=== PATIENT | female | born 1990 | race Caucasian/White ===

== ENCOUNTER 2018-01-22 13:03 | Emergency (ER) | payer OTHER ==
[2018-01-22 13:09] VITALS: BP 112/71; PULSE 76; TEMP 97.6; BMI 23.0
[2018-01-22] MEDS ORDERED: METOCLOPRAMIDE HCL INJECTION 10 MG/2 ML VIAL IVPUSH ONE (14:24)
[2018-01-22] MEDS ORDERED: SODIUM CHLORIDE 1,000 ML IV ONE (14:24)
[2018-01-22] MEDS ORDERED: MECLIZINE HCL 25 MG TABLET (FP) PO ONE (14:24)
--- NOTE | 2018-01-22 14:30 | PDOC ---
History of Present Illness - General Chief Complaint: Lightheaded Stated Complaint: DIZZY,HEADACHE Time Seen by Provider: 01/22/18 13:39 History Source: Patient Exam Limitations: No Limitations - History of Present Illness Initial Comments: 01/22/18 14:25 27y F no pmhx presents with complaint of feeling a mild headache and feeling woozy. pt states she was fine last week, starting on monday, she started feeling alittle dizzy and lightheaded when she was walking around. pt notse the sypmtoms persisteed throughout the weekend, and she endorses it as a pressure like sensation around ehr temples, as well as feeling lighteahded when she stands, walks and turns her head. no such sensation when she is at rest. pt ntos she feels alittle nauseus when she feels dizzy, dnies sensation of room spining dizziness. pt yoselyn any vomiting, fever/chills, severe headache, neck pain, back pain, eharing problems. no recent uris/illnessess no recent trauma Past History - Past Medical History Allergies/Adverse Reactions: Allergies Allergy/AdvReac Type Severity Reaction Status Date / Time No Known Allergies Allergy Verified 01/22/18 13:05 Home Medications: Ambulatory Orders Meclizine HCl [Antivert -] 25 mg PO TID PRN #15 tablet 01/22/18 Ondansetron [Zofran -] 4 mg PO TID PRN #14 tablet 01/22/18 COPD: No - Suicide/Smoking/Psychosocial Hx Smoking History: Never smoked Have you smoked in the past 12 months: No Information on smoking cessation initiated: No Hx Alcohol Use: No Drug/Substance Use Hx: No Substance Use Type: None Review of Systems - Review of Systems Able to Perform ROS?: Yes Comments:: 01/22/18 14:29 Constitutional - no reported Fever, Chills, HEENT: no reported vision changes, sore throat Respiratory: no reported cough, sob, hemoptysis Cardiac: +light headedness no reported chest pain, palpitations, , leg swelling Abd/GI: no reported abd pain, nausea, vomiting, blood per rectum, melena, diarrhea : no reported dysuria, frequency, discharge Musculskelatal - no reported back pain, joint swelling skin - no reported bruising, erythema, rash neurological: + headache, no reported numbness, focal weakness, tingling, ataxia , hematologic: no reported easy bruising, easy bleeding *Physical Exam - Vital Signs Last Vital Signs Temp Pulse Resp BP Pulse Ox 97.6 F 76 20 112/71 100 01/22/18 13:04 01/22/18 13:04 01/22/18 13:04 01/22/18 13:04 01/22/18 13:04 - Physical Exam Comments: 01/22/18 14:40 GENERAL: The patient is awake, alert, and fully oriented, Nontoxic - in no acute distress. HEAD: Normocephalic, atraumatic. EYES: extraocular movements intact, sclera anicteric, conjunctiva clear. ENT: Normal voice, Moist mucous membranes. NECK: Normal range of motion, supple LUNGS: Breath sounds equal, clear to auscultation bilaterally. No wheezes, no rhonchi, no rales. HEART: Regular rate and rhythm, normal S1 and S2 without murmur, rub or gallop. ABDOMEN: Soft, nontender, normoactive bowel sounds. No guarding, no rebound. . No CVA tenderness EXTREMITIES: Normal range of motion, no edema. No clubbing or cyanosis. No cords, erythema, or tenderness. PSYCH: Normal mood, normal affect. SKIN: Warm, Dry, normal turgor, NEURO: Mental status: The patient is oriented x3. Cranial nerves: Cranial nerves II through XII are intact Motor: The upper extremities are 5 over 5 in all muscle groups. The lower extremities are 5 over 5 in all muscle groups. Negative pronator drift Sensation: Sensation is intact to light touch throughout. romberg negative Cerebellar: Admyhn-[id number]-mjej is normal in both upper extremities. rapid alternating movements are normal. Gait: Normal. ED Treatment Course - LABORATORY CBC & Chemistry Diagram: 01/22/18 15:15 01/22/18 15:15 Medical Decision Making - Medical Decision Making 01/22/18 14:41 suspect vertigo vs tension headache will treat supportively will ck basic labs fluids, zofran, meclizine 01/22/18 16:55 pt feeling improved no longer dizzy, ambulating around the ED feling well headache also substnatially improved normal gait normal finger to nose, rpaid alternatiing movements will dc with pmd fu returnprecautions were discussed I discussed the physical exam findings, ancillary test results and final diagnoses with the patient. I answered all of the patient's questions. The patient was satisfied with the care received and felt comfortable with the discharge plan and treatment plan. The patient will call their primary care physician within 24 hours to arrange follow-up and will return to the Emergency Department with any new, persistent or worsening symptoms. *DC/Admit/Observation/Transfer Diagnosis at time of Disposition: Vertigo - Discharge Dispostion Disposition: HOME Condition at time of disposition: Improved Decision to Admit order: No - Referrals Referrals: [facility] [place] [facility] [place] [Provider Group] - Patient Instructions Printed Discharge Instructions: DI for Vertigo Additional Instructions: Return to the emergency department immediately with ANY new, persistent or worsening symptoms including headache, vomiting, persistent dizziness, double vision, diffuclty with speech or any other concerns. Take meclizine for the dizziness and zofran if you feel nauseus. You MUST call and follow up with your doctor or a neurologist in 3-4 days for further evaluation of your symptoms. Results were discussed with you. Please make sure your doctor reviews the results of your emergency evaluation. Print Language: SURINAMESE - Post Discharge Activity
[2018-01-22] MEDS ORDERED: MECLIZINE HCL 25 MG TABLET (FP) ONE (15:21)
[2018-01-22 15:33] LABS: EOS % 1.7 % (0-4.5); HEMATOCRIT 44.6 % (32.4-45.2); HEMOGLOBIN 15.1 GM/dl (10.7-15.3); LYMPH % 23.5 % (8-40); MCH 30.1 pg (25.7-33.7); MCHC 33.8 g/dl (32.0-36.0); MEAN CELL VOLUME 89.1 fl (80-96); MEAN PLT VOLUME 8.6 fl (7.5-11.1); NEUT % 67.8 % (42.8-82.8); PLATELET COUNT 233 K/MM3 (134-434); RBC 5.01 M/mm3 (3.60-5.2); RDW 11.4 % (11.6-15.6); WHITE BLOOD COUNT 9.3 K/mm3 (4.0-10.8)
[2018-01-22 15:42] LABS: ALBUMIN 4.4 g/dl (3.5-5.0); ALK PHOS 48 U/L (32-92); ANION GAP 7 MMOL/L (8-16); BILIRUBIN,TOTAL 0.7 mg/dl (0.2-1.0); BLOOD UREA NITROGEN 13 mg/dl (7-18); CALCIUM 9.2 mg/dl (8.4-10.2); CHLORIDE 104 mmol/L (98-107); CO2 25 mmol/L (22-28); CREATININE 0.7 mg/dl (0.6-1.3); GLUCOSE,RANDOM 92 mg/dl (74-106); POTASSIUM 3.7 mmol/L (3.5-5.1); SGOT/AST 22 U/L (10-42); SGPT/ALT 27 U/L (10-40); SODIUM 136 mmol/L (136-145); TOT PROT 7.5 g/dl (6.4-8.3)
[2018-01-22 16:37] LABS: PH,URINE 6.5 (4.5-8); URINE APPEARANCE Clear; URINE BILIRUBIN Negative (NEGATIVE); URINE COLOR Yellow; URINE GLUCOSE (UA) Negative (NEGATIVE); URINE KETONE Negative (NEGATIVE); URINE LEUK ESTERASE Negative (NEGATIVE); URINE NITRITE Negative (NEGATIVE); URINE PROTEIN Negative (NEGATIVE); URINE UROBILINOGEN 0.2 (0.2-1.0)
[2018-01-22 16:43] LABS: HCG,QUALITATIVE URINE Negative
== END 2018-01-22 17:06 | disposition home or self-care (01) ==
LOC: FER 13:03
PROC: 3E033GC Introduction of Other Therapeutic Substance into Peripheral Vein, Percutaneous Approach (ICD-10-PCS; principal; 2018-01-22)
PROC: 3E0337Z Introduction of Electrolytic and Water Balance Substance into Peripheral Vein, Percutaneous Approach (ICD-10-PCS; 2018-01-22)
DX: R42 Dizziness and giddiness (principal)
CPT/HCPCS: 36415; 80053; 81003; 84703; 85025; 99281-25; J7030